=== PATIENT | female | born 1985 | race Caucasian/White ===

== ENCOUNTER 2017-01-03 07:18 | Emergency (ER) | payer OTHER ==
[~2017-01-03] VITALS: Ht 167.6 cm; Wt 68.0 kg
[~2017-01-03 07:18] MED LIST: ALBUTEROL0.09 MG/A1 IH
[2017-01-03 07:27] VITALS: BP 131/66
--- NOTE | 2017-01-03 07:29 | NUR ---
Patient ambulated to bed 7. RN evaluating patient at bedside.
--- NOTE | 2017-01-03 07:38 | NUR ---
SORE THROAT, SINUS PRESSURE, HEADACHE AND BILAT EARACHE X 4 DAYS; DENIES N/V/D; SKIN IS PINK/WARM/DRY; AAOX4 WITH EVEN AND STEADY GAIT; LUNGS CLEAR BL; HR EVEN AND REGULAR; PT DENIES ANY FEVER, CP OR SOB AT THIS TIME; PATIENT STATES PAIN OF 10/10 AT THIS TIME; VSS; PATIENT POSITIONED FOR COMFORT; HOB ELEVATED; BEDRAILS UP X2; BED DOWN. ER MD MADE AWARE OF PT STATUS.
--- NOTE | 2017-01-03 07:38 | NUR ---
Dr. Erazo evaluating patient at bedside.
[2017-01-03] MEDS ORDERED: DEXAMETHASONE 4 MG/ML VIAL PO ONE (07:45)
[2017-01-03] MEDS ORDERED: KETOROLAC 30 MG/ML VIAL IM ONE (07:45)
[2017-01-03 08:20] VITALS: BP 113/74
--- NOTE | 2017-01-03 08:20 | NUR ---
Patient discharged with v/s stable. Written and verbal after care instructions given and explained. Patient alert, oriented and verbalized understanding of instructions. Ambulatory with steady gait. All questions addressed prior to discharge. ID band removed. Patient advised to follow up with PMD. Rx of MOTRIN, AUGMENTIN, MUCINEX, MACROBID given. Patient educated on indication of medication including possible reaction and side effects. Opportunity to ask questions provided and answered.
== END 2017-01-03 08:20 | disposition home or self-care (01) ==
LOC: MED 07:30
DX: J01.10 Acute frontal sinusitis, unspecified (principal); J06.9 Acute upper respiratory infection, unspecified; J45.909 Unspecified asthma, uncomplicated
CPT/HCPCS: 81002; 81025; 96372; 99283; J1100; J1885

== ENCOUNTER 2018-05-25 18:22 | Emergency (ER) | payer OTHER ==
[~2018-05-25] VITALS: Ht 167.6 cm; Wt 82.1 kg
[~2018-05-25 18:22] MED LIST changes: +ALBU0.0939 IH; -ALBUTEROL0.09 MG/A1 IH
[2018-05-25 18:43] VITALS: BP 102/68
--- NOTE | 2018-05-25 18:48 | NUR ---
PT AMBULATED TO ER BED 06
--- NOTE | 2018-05-25 18:54 | NUR ---
32/F BIB SELF C/O L BACK OF RIGHT EAR PAIN X & [place] X 5 DAYS, LEFT BACK PAIN X 3 DAYS. NO N/V/D OR URINARY COMPLAINTS. DENIES N/V/D; SKIN IS PINK/WARM/DRY; AAOX4 WITH EVEN AND STEADY GAIT; LUNGS CLEAR BL. PT DENIES ANY FEVER, CP, SOB, OR COUGH AT THIS TIME; PATIENT STATES PAIN OF 8/10 AT THIS TIME. PATIENT POSITIONED FOR COMFORT; HOB ELEVATED; BEDRAILS UP X2; BED DOWN. ER MD MADE AWARE OF PT STATUS.
--- NOTE | 2018-05-25 19:07 | NUR ---
RECEIVED REPORT FROM DIOMEDES JEAN BAPTISTE
--- NOTE | 2018-05-25 19:11 | NUR ---
Pt report given to SONY JEAN BAPTISTE. Transfer of care at this time.
[2018-05-25 20:05] VITALS: BP 113/79
--- NOTE | 2018-05-25 20:05 | NUR ---
AWAITING DR WADDELL EVALUATION. PT IN BED RESTING POSITIONED FOR COMFORT. VSS. CONTINUE TO MONITOR. PAIN REMAINS PRESENT AT THIS TIME.
--- NOTE | 2018-05-25 21:23 | NUR ---
PATIENT LEFT WITHOUT BEING SEEN BY DR. WADDELL. NO FURTHER CARE PROVIDED FOR PATIENT.
== END 2018-05-25 21:24 | disposition left against medical advice (07) ==
LOC: MED 18:22
DX: R10.9 Unspecified abdominal pain (principal); J45.909 Unspecified asthma, uncomplicated; Z53.21 Procedure and treatment not carried out due to patient leaving prior to being seen by health care provider

== ENCOUNTER 2018-12-27 08:27 | Emergency (ER) | payer OTHER ==
[~2018-12-27] VITALS: Ht 167.6 cm; Wt 74.8 kg
[2018-12-27 08:40] VITALS: BP 104/60
--- NOTE | 2018-12-27 08:43 | NUR ---
33/F c/o NAUSEA, sinus pain, nasal congestion, cough x 2 days. has been taking dayquil. DENIES V/D; SKIN IS PINK/WARM/DRY; AAOX4 WITH EVEN AND STEADY GAIT; LUNGS CLEAR BL; HR EVEN AND REGULAR; PT DENIES ANY FEVER, CP OR SOB AT THIS TIME; PATIENT STATES PAIN OF 8/10 AT THIS TIME. PATIENT POSITIONED FOR COMFORT; HOB ELEVATED; BEDRAILS UP X2; BED DOWN. ER MD MADE AWARE OF PT STATUS.
--- NOTE | 2018-12-27 10:47 | NUR ---
Patient being evaluated by DR GARCIA at bedside.
[2018-12-27 11:12] VITALS: BP 103/64
--- NOTE | 2018-12-27 11:12 | NUR ---
Patient discharged with v/s stable. Written and verbal after care instructions given and explained. Patient alert, oriented and verbalized understanding of instructions. Ambulatory with steady gait. All questions addressed prior to discharge. ID band removed. Patient advised to follow up with PMD. Rx of CLARITIN given. Patient educated on indication of medication including possible reaction and side effects. Opportunity to ask questions provided and answered.
== END 2018-12-27 11:12 | disposition home or self-care (01) ==
LOC: MED 08:27
DX: B34.9 Viral infection, unspecified (principal); J32.9 Chronic sinusitis, unspecified; J45.909 Unspecified asthma, uncomplicated; Z79.899 Other long term (current) drug therapy
CPT/HCPCS: 99283

== ENCOUNTER 2019-06-25 19:03 | Emergency (ER) | payer OTHER ==
[~2019-06-25] VITALS: Ht 167.6 cm; Wt 77.1 kg
[2019-06-25 19:15] VITALS: BP 112/76
--- NOTE | 2019-06-25 19:18 | NUR ---
TO LOBBY A/W BED, AMBULATORY
--- NOTE | 2019-06-25 19:59 | NUR ---
PT TAKEN TO BED 1
--- NOTE | 2019-06-25 20:00 | NUR ---
PT ON BED LYING COMFORTABLY. NO SIGNS OF DISTRESS. PT COMPLAINT OF RIGHT ANKLE SWELLING. SHE SAID SHE THINKS SHE MIGHT HAVE BITTEN BY A MOSQUITO. WILL CONTINUE TO MONITOR.
[2019-06-25 20:32] VITALS: BP 120/84
== END 2019-06-25 20:38 | disposition home or self-care (01) ==
LOC: MED 19:03
DX: S90.561A Insect bite (nonvenomous), right ankle, initial encounter (principal); L03.115 Cellulitis of right lower limb; J45.909 Unspecified asthma, uncomplicated; Z79.899 Other long term (current) drug therapy; W57.XXXA Bitten or stung by nonvenomous insect and other nonvenomous arthropods, initial encounter; Y93.89 Activity, other specified; Y92.89 Other specified places as the place of occurrence of the external cause; Y99.8 Other external cause status
CPT/HCPCS: 99283